=== PATIENT | female | born 1990 | race Hispanic/Latino ===

== ENCOUNTER 2022-06-11 09:41 | Observation (INO) | payer BC ==
[~2022-06-11] VITALS: Ht 170.2 cm; Wt 93.0 kg
[2022-06-11 11:22] VITALS: BP 120/70
[2022-06-11] MEDS ORDERED: OSELTAMIVIR PHOSPHATE 75 MG CAP PO SCH (11:30)
[2022-06-11] MEDS: LACTATED RINGERS 1000ML 1,000 ML IV SCH ×2 (11:31→11:37)
== END 2022-06-11 13:05 | disposition home or self-care (01) ==
LOC: EDH 09:41 → LDH 10:10
PROVIDERS: ADMIT Obstetrics & Gynecology; ATTEND Obstetrics & Gynecology
DX: O36.8120 Decreased fetal movements, second trimester, not applicable or unspecified (principal); O26.892 Other specified pregnancy related conditions, second trimester; R50.9 Fever, unspecified; Z3A.24 24 weeks gestation of pregnancy
CPT/HCPCS: 96360; 96361; 59025; 87880; 87804 ×2; 87635; G0378 ×3; G0379